=== PATIENT | female | born 1975 | race Caucasian/White ===

== ENCOUNTER 2018-05-30 09:28 | Emergency (ER) | payer OTHER ==
[2018-05-30 09:51] VITALS: BMI 21.9
--- NOTE | 2018-05-30 09:53 | PDOC ---
History of Present Illness - General Chief Complaint: Pain Stated Complaint: BACK PAIN Time Seen by Provider: 05/30/18 09:53 History Source: Patient Exam Limitations: No Limitations - History of Present Illness Initial Comments: 05/30/18 10:07 42 year old female with no PMH c/o back pain x2 days. She states the pain began after a night of dancing. Pain is located to her low back, worse with movement, better with rest. She denies fever, chills, weakness, numbness, tingling, lightheadedness, chest pain, shortness of breath, headache, nausea, vomiting, diarrhea, abdominal pain. She denies hx DM, spinal injections, recent steroid use. Allergies - NKDA Past History - Past Medical History Allergies/Adverse Reactions: Allergies Allergy/AdvReac Type Severity Reaction Status Date / Time No Known Allergies Allergy Verified 05/30/18 09:46 Home Medications: Ambulatory Orders Cyclobenzaprine HCl [Flexeril 10 mg] 10 mg PO BID PRN #10 tablet 05/30/18 Naproxen 500 mg PO BID #6 tablet 05/30/18 Tramadol HCl 50 mg PO QID PRN #12 tablet MDD 4 05/30/18 COPD: No Thyroid Disease: No - Suicide/Smoking/Psychosocial Hx Smoking History: Never smoked Have you smoked in the past 12 months: No Information on smoking cessation initiated: No Hx Alcohol Use: No Drug/Substance Use Hx: No Substance Use Type: None Review of Systems - Review of Systems Able to Perform ROS?: Yes Comments:: 05/30/18 10:12 General: denies fever, chills, night sweats, generalized weakness. HEENT: denies sore throat, rhinorrhea, ear pain. Heart: denies chest pain, palpitations, syncope, lower extremity swelling, diaphoresis. Respiratory: denies shortness of breath, cough, sputum production, hematemesis. Abdomen: denies abdominal pain, nausea, vomiting, diarrhea, constipation, blood in stool. : denies dysuria, increased urinary frequency, hematuria, urinary incontinence , flank pain. Back: admits to back pain. denies flank pain. Musculoskeletal: denies joint pain, muscle pain, joint swelling. Neurological: denies headache, dizziness, numbness, tingling, weakness. Skin: denies rash, laceration, abrasion. *Physical Exam - Vital Signs Last Vital Signs Temp Pulse Resp BP Pulse Ox 98.3 F 40 L 18 109/59 100 05/30/18 09:47 05/30/18 09:47 05/30/18 09:47 05/30/18 09:47 05/30/18 09:47 - Physical Exam Comments: 05/30/18 10:13 Appearance: comfortable. HEENT: head is normocephalic, atraumatic. EOMI. PERRLA. Neck: supple. Full ROM. Heart: bradycardic. regular rhythm. no murmurs, rubs or gallops. No pericardial friction rub. Lungs: clear to auscultation bilaterally. no crackles, rhonchi or wheezing. no stridor. Abdomen: soft, nontender. normal bowel sounds. no rebound, guarding, masses. Back: tenderness to palpation of lower back bilaterally. Extremities: Peripheral pulses intact and equal. No lower extremity edema. Neurological: Alert. Oriented x3. CN2-12 intact. 5/5 strength all extremities. Full sensation all extremities and bilateral face Medical Decision Making - Medical Decision Making 05/30/18 10:13 42 year old female with no PMH c/o mechanical back pain. Incidentally bradycardic at 35 bpm, asymptomatic. Initial Vital Signs Temp Pulse Resp BP Pulse Ox 98.3 F 40 L 18 109/59 100 05/30/18 09:47 05/30/18 09:47 05/30/18 09:47 05/30/18 09:47 05/30/18 09:47 Pending urine test, UA/UC. 05/30/18 10:36 Urine test negative. Toradol ordered. 05/30/18 10:44 UA - trace LE. No elevation of WBC. 1+ blood. LMP today. 05/30/18 11:09 Flexeril ordered. 05/30/18 11:28 Pt states her back pain is improving. Will reassess. 05/30/18 11:55 Pt reassessed, states pain is improving but she is still uncomfortable. Tramadol ordered. 05/30/18 12:55 Pt reassessed, states pain is improved and she feels comfortable to go home. Pt will be discharged with follow up instructions, strict return precautions and prescriptions for Flexeril, Naproxen, and Tramadol. *DC/Admit/Observation/Transfer Diagnosis at time of Disposition: Back pain - Discharge Dispostion Disposition: HOME Condition at time of disposition: Improved Decision to Admit order: No - Prescriptions Prescriptions: Cyclobenzaprine HCl [Flexeril 10 mg] 10 mg PO BID PRN #10 tablet PRN Reason: Back Pain Naproxen 500 mg PO BID #6 tablet Tramadol HCl 50 mg PO QID PRN #12 tablet MDD 4 PRN Reason: Pain - Referrals - Patient Instructions Printed Discharge Instructions: DI for Low Back Pain Additional Instructions: You were seen today for back pain by Dr. Plata. You were given intramuscular Toradol, which is an anti-inflammatory medication, it will last 4-6 hours. You were given Flexeril, a muscle relaxant. You were given Tramadol, a pain medicine. Your urine analysis was normal. I have written a prescription for Naproxen (an anti-inflammatory), and sent it to your pharmacy, take it every 12 hours. I have written a prescription for Flexeril (a muscle relaxant), and sent it to your pharmacy, take it every 12 hours as needed for pain. Do not take both ibuprofen and naproxen at the same time. You can take Naproxen and Tylenol at the same time. Stay hydrated, drink water. Rest the affected area, no upper body exercise for 1-2 weeks, or until the pain has subsided. No heavy lifting for 1-2 weeks, or until the pain has subsided. Stop dancing for 5 days, or until pain subsides. Follow up with your primary care physician within 5 days, and bring the paperwork given to you today with you. Call their office tomorrow morning, tell them you were seen in the Emergency Department, and make an appointment for this week. Please return to the Emergency Department if you develop fever, nausea, vomiting , burning with urination, increasing pain, weakness or numbness, urinary or bowel incontinence, or any new, worsening or concerning symptoms. Your care is not complete until you follow up. - Post Discharge Activity Forms/Work/School Notes: Back to Work
[2018-05-30] MEDS ORDERED: KETOROLAC TROMETHAMINE 60 MG/2 ML VIAL IM ONE (10:10)
--- NOTE | 2018-05-30 10:11 | PDOC ---
Attending Attestation - Resident Resident Name: Patricia Plata - ED Attending Attestation I have performed the following: I have examined & evaluated the patient, The case was reviewed & discussed with the resident, I agree w/resident's findings & plan, Exceptions are as noted - HPI HPI: 05/30/18 10:11 42y F no pmhx presents with complaint of back pain. 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 does not remember any acute movements that cuased it. pt notes the pain has bene getting better/worse intermittently. Worse with movements particularly with twisting motions, improves with rest., no associated fever/chills, n/v, dysuria, hematuria, numnbess/tingling/wkeneass. The ptaient denies any cp, sob, lightheadedness, palpitations. Pt taking tylenol occasionally without significant improvement. LMP: current GENERAL: The patient is awake, alert, and fully oriented, Nontoxic - in no acute distress. HEAD: Normocephalic, atraumatic. EYES: extraocular movements intact, sclera anicteric, conjunctiva clear. ENT: Normal voice, Moist mucous membranes. BACK: No focal midline tenderness in cervical/thoracic/lumbar, reproducible mild paravertebral tenderness to palpation in R lumbar back LUNGS: Breath sounds equal, clear to auscultation bilaterally. No wheezes, no rhonchi, no rales. HEART: bradycardia, no mrg ABDOMEN: Soft, nontender, EXTREMITIES: Normal range of motion, No clubbing or cyanosis. No cords, erythema, or tenderness. NEUROLOGICAL: No facial assymetry, Normal speech, moving all 4 extreimties spontaneously and symmetrically. PSYCH: Normal mood, normal affect. SKIN: Warm, Dry, normal turgor suspect he rpain is secondary to muscle strain will give toradal and flexeril pt also notable bradycardic - 35, NSR on Ekg - suspect du to th epts fitness lvel - she is otherwise asymptomatic without signs of sypmtomatic bradycardia - Physicial Exam PE: 05/30/18 14:54 see above - Medical Decision Making pt feeling improved at discharge able to ambulate dmitriy dc with pain meds return precautions were discussed Heart Score/ECG Review - ECG Impressions Comment:: 05/30/18 11:10 Twelve-lead EKG was performed and reviewed by me. There is normal sinus rhythm with a rate of [address] changs suggestive of acute ischemia itnervals normal Impression: sinus bradycarida
[2018-05-30] MEDS ORDERED: KETOROLAC TROMETHAMINE 60 MG/2 ML VIAL ONE (10:28)
[2018-05-30 10:34] LABS: URINE APPEARANCE CLEAR; URINE BILIRUBIN NEGATIVE (<2.0 mg/dL); URINE COLOR LTYELLOW; URINE GLUCOSE (UA) NEGATIVE (NEGATIVE); URINE KETONE NEGATIVE (NEGATIVE); URINE LEUK ESTERASE TRACE (NEGATIVE); URINE NITRITE NEGATIVE (NEGATIVE); URINE PROTEIN NEGATIVE (NEGATIVE); URINE UROBILINOGEN NEGATIVE mg/dL (0.2-1.0)
[2018-05-30 10:36] LABS: HCG,QUALITATIVE URINE Negative
[2018-05-30 10:43] LABS: EPI CELLS RARE /HPF (FEW); URINE MUCUS RARE
[2018-05-30] MEDS ORDERED: CYCLOBENZAPRINE HCL 10 MG TABLET (FP) PO ONE (11:04)
[2018-05-30] MEDS ORDERED: CYCLOBENZAPRINE HCL 10 MG TABLET (FP) ONE (11:13)
[2018-05-30] MEDS ORDERED: traMADol HCL 50 MG TABLET PO ONE (11:55)
[2018-05-30] MEDS ORDERED: traMADol HCL 50 MG TABLET ONE (12:04)
[2018-05-30 13:11] VITALS: BP 103/67; PULSE 39; TEMP 98.2
--- NOTE | 2018-06-03 09:20 | EKG ---
Test Reason : Blood Pressure : / mmHG Vent. Rate : 035 BPM Atrial Rate : 035 BPM P-R Int : 152 ms QRS Dur : 098 ms QT Int : 508 ms P-R-T Axes : 065 079 023 degrees QTc Int : 387 ms MARKED SINUS BRADYCARDIA NONSPECIFIC T WAVE ABNORMALITY NON-SPECIFIC INTRA-VENTRICULAR CONDUCTION DELAY NO PREVIOUS ECGS AVAILABLE Confirmed by NATALIE DODD MD ([id number]) on 06/03/2018 9:20:18 AM Referred By: Confirmed By:NATALIE DODD MD
== END 2018-05-30 13:00 | disposition home or self-care (01) ==
LOC: JER 09:28
PROC: 3E0233Z Introduction of Anti-inflammatory into Muscle, Percutaneous Approach (ICD-10-PCS; principal; 2018-05-30)
DX: M54.5 Low back pain (principal); X50.1XXA Overexertion from prolonged static or awkward postures, initial encounter; Y93.41 Activity, dancing; Y92.89 Other specified places as the place of occurrence of the external cause; Y99.8 Other external cause status
CPT/HCPCS: 81003; 81015; 84703; 87086; 93005; 93010; 96372; 99283-25

== ENCOUNTER 2021-02-28 04:52 | Day surgery (SDC) | payer OTHER ==
[2021-02-27 16:40] VITALS: BMI 27.4
[2021-02-28] MEDS ORDERED: BUPIVACAINE HCL/PF 0.5% (5MG/ML) 10 ML VIAL ONE (07:18)
[2021-02-28] MEDS ORDERED: LIDOCAINE HCL/PF 1% SDV 5ML VIAL ONE (07:18)
[2021-02-28] MEDS ORDERED: TRIAMCINOLONE ACET 40MG/1ML VIAL ONE (07:18)
[2021-02-28] MEDS ORDERED: BUPIVACAINE HCL/PF 0.75% 10 ML VIAL ONE (07:18)
[2021-02-28] MEDS ORDERED: IOHEXOL 180 MG/1 ML ML IJ ONE ×2 (07:53)
[2021-02-28] MEDS ORDERED: LIDOCAINE 1% P/F 10 MG/ML VIAL INF ONE (07:54)
[2021-02-28] MEDS ORDERED: BUPIVACAINE HCL/PF 0.5% (5MG/ML) 10 ML VIAL IJ ONE (07:54)
[2021-02-28] MEDS ORDERED: TRIAMCINOLONE ACET 40MG/1ML VIAL IJ ONE (07:55)
[2021-02-28 08:09] VITALS: BP 108/71; PULSE 49; TEMP 96.8
== END 2021-02-28 08:20 | disposition home or self-care (01) ==
LOC: JASU-SURG 04:52
PROVIDERS: ATTEND Pain Medicine Pain Medicine
PROC: 3E0U3BZ Introduction of Anesthetic Agent into Joints, Percutaneous Approach (ICD-10-PCS; 2021-02-28)
PROC: 3E0U33Z Introduction of Anti-inflammatory into Joints, Percutaneous Approach (ICD-10-PCS; principal; 2021-02-28 07:30)
DX: M53.3 Sacrococcygeal disorders, not elsewhere classified (principal)
CPT/HCPCS: 76000-TC-FY; 81025